=== PATIENT | female | born 1995 | race African-American/Black ===

== ENCOUNTER 2018-07-23 08:07 | Emergency (ER) | payer OTHER ==
[~2018-07-23] VITALS: Ht 170.2 cm; Wt 63.6 kg
[2018-07-23 08:13] VITALS: BP 112/84
== END 2018-07-23 08:41 | disposition home or self-care (01) ==
LOC: EMS 08:08
DX: T65.6X1A Toxic effect of paints and dyes, not elsewhere classified, accidental (unintentional), initial encounter (principal); L25.2 Unspecified contact dermatitis due to dyes; Y92.89 Other specified places as the place of occurrence of the external cause
CPT/HCPCS: 99283

== ENCOUNTER 2019-05-10 18:30 | Emergency (ER) | payer OTHER ==
[~2019-05-10] VITALS: Ht 170.2 cm; Wt 62.7 kg
[2019-05-10 19:49] VITALS: BP 119/78
== END 2019-05-10 19:52 | disposition home or self-care (01) ==
LOC: EMS 18:30
DX: S16.1XXA Strain of muscle, fascia and tendon at neck level, initial encounter (principal); G43.909 Migraine, unspecified, not intractable, without status migrainosus; Z88.6 Allergy status to analgesic agent; X58.XXXA Exposure to other specified factors, initial encounter; Y93.89 Activity, other specified; Y92.89 Other specified places as the place of occurrence of the external cause; Y99.0 Civilian activity done for income or pay